=== PATIENT | female | born 1965 | race Caucasian/White ===

== ENCOUNTER 2016-09-22 15:23 | Emergency (ER) | payer BC ==
[~2016-09-22] VITALS: Ht 165.1 cm; Wt 129.5 kg
[~2016-09-22 15:23] MED LIST: ALCOHOL SWAB1 EACH TP; ALEVE220 M2 PO; ANCEF,KEFZ2 GM/100 M IV; ATORVASTATIN CA20 MG PO; CARAFATE1 GM PO; DURICEF1 GM PO; HYDROCODON-ACE1 EAC9 PO; LABETALOL HCL100 MG PO; LEVEMIR100 UNIT/2 SC; LISINOPRIL10 MG PO; LISINOPRIL40 MG PO; METFORMIN HCL500 MG PO; NOVOLOG PE100 UNITS/ SC; PEPCID40 MG PO; TYLENOL EXTRA500 MG PO; VANCOMYCIN HCL1 GM IV; [UNRECOGNIZED DRUG - SUPPLY] MC
[2016-09-22] MEDS ORDERED: NAPROXEN500 MG PO (17:43)
[2016-09-22 17:52] VITALS: BP 177/84
== END 2016-09-22 17:56 | disposition home or self-care (01) ==
LOC: EME 15:23
DX: M77.11 Lateral epicondylitis, right elbow (principal); I10 Essential (primary) hypertension; E11.9 Type 2 diabetes mellitus without complications; Z79.84 Long term (current) use of oral hypoglycemic drugs
CPT/HCPCS: 99281; 99284

== ENCOUNTER 2018-04-11 17:33 | Emergency (ER) | payer BC ==
[~2018-04-11] VITALS: Ht 165.1 cm; Wt 122.0 kg
[~2018-04-11 17:33] MED LIST changes: +NAPROXEN500 MG PO
[2018-04-11 18:50] LABS: HEMATOCRIT 31.6 % (36.0-46.0); HEMOGLOBIN 10.4 G/DL (11.9-15.5); MCH 27.9 PG (29.0-34.0); MCHC 32.9 G/DL (30.0-36.0); MCV 84.7 FL (83-99); PLATELET COUNT 403 K/uL (156-360); RBC DIS.WIDTH-CV 13.5 % (11.8-14.6); RBC DIS.WIDTH-SD 41.8 % (39-53); RED BLOOD COUNT 3.73 M/uL (3.80-5.20); WHITE BLOOD COUNT 12.1 K/uL (4.1-10.2)
[2018-04-11 18:58] LABS: CHLORIDE 103 mEq/L (99-109); POTASSIUM 3.7 mEq/L (3.7-5.4); SODIUM 138 mEq/L (136-147)
[2018-04-11 19:00] LABS: GLUCOSE 295 mg/dL (70-99)
[2018-04-11 19:04] LABS: CREATININE 0.8 mg/dL (0.6-1.3); GFR ESTIMATE (CALCULATED) > 59 mL/min/
[2018-04-11 19:05] LABS: UREA NITROGEN (BUN) 12 mg/dL (9-23)
[2018-04-11] MEDS ORDERED: NORCO 5/3251 TABLET PO (20:38)
[2018-04-11] MEDS ORDERED: METFORMIN HCL500 MG PO (20:38)
[2018-04-11] MEDS ORDERED: LEVEMIR100 UNIT/2 SC (20:38)
[2018-04-11 20:59] VITALS: BP 168/81
== END 2018-04-11 21:10 | disposition home or self-care (01) ==
LOC: EME 17:33
PROVIDERS: Physician Assistant
PROC: 0H9HXZZ Drainage of Right Upper Leg Skin, External Approach (ICD-10-PCS; principal; 2018-04-11)
DX: L02.415 Cutaneous abscess of right lower limb (principal); E11.65 Type 2 diabetes mellitus with hyperglycemia; I10 Essential (primary) hypertension; Z79.84 Long term (current) use of oral hypoglycemic drugs
CPT/HCPCS: 76882; 80048; 82948; 83605; 85027; 99281; 99285